=== PATIENT | female | born 1975 | race Caucasian/White ===

== ENCOUNTER 2018-04-05 16:00 | Outpatient (RCR) | payer BC ==
[2013-02-18 12:03] VITALS: BP 119/63
[~2018-04-05 16:00] MED LIST: GREEN COFFEE BEAN; NORCO 325 MG-51 TAB PO
== END 2018-05-09 | disposition home or self-care (01) ==
LOC: PT
DX: M54.41 Lumbago with sciatica, right side (principal)

== ENCOUNTER → 2021-08-21 | Outpatient (CLI) | payer BC ==
[2021-08-21 10:26] LABS: BASO # 0.03 K/mm3 (0.02-0.10); EOS # 0.07 K/mm3 (0.04-0.40); EOS % 1.4 % (1.0-5.0); HEMOGLOBIN 14.3 g/dL (12.5-16.0); LYMPH# 1.79 K/mm3 (1.50-4.00); MEAN CELL VOLUME 87 fl (78-100); MEAN CORPUSCULAR HEMOGLOBIN 28 pg (27-31); MEAN CORPUSCULAR HGB CONC 32 g/dL (33-37); MONO # 0.56 K/mm3 (0.20-0.80); NEU # 2.54 K/mm3 (1.40-6.50); PLATELET COUNT 203 K/mm3 (130-400); RED BLOOD COUNT 5.17 M/mm3 (4.10-5.30); RED CELL DISTRIBUTION WIDTH 18.2 % (11.5-14.5)
[2021-08-21 10:41] LABS: ALBUMIN 3.9 g/dL (3.5-5.0); POTASSIUM 4.1 mmol/L (3.5-5.1)
[2021-08-21 10:42] LABS: CALCIUM 8.8 mg/dL (8.3-10.5)
[2021-08-21 10:44] LABS: TOTAL PROTEIN 7.3 g/dL (6.4-8.3)
[2021-08-21 10:46] LABS: TOTAL BILIRUBIN 0.6 mg/dL (0.2-1.2)
[2021-08-21 10:47] LABS: URINE APPEARANCE CLEAR; URINE BILIRUBIN NEGATIVE (NEGATIVE); URINE BLOOD 50 ery/uL (NEGATIVE); URINE COLOR YELLOW; URINE GLUCOSE NEGATIVE (NEGATIVE); URINE KETONE NEGATIVE (NEGATIVE); URINE LEUKOCYTE ESTERASE NEGATIVE (NEGATIVE); URINE MUCUS PRESENT (NOT PRESENT); URINE NITRATE NEGATIVE (NEGATIVE); URINE PROTEIN(semi-quant) 1+ mg/dL (NEGATIVE); URINE UROBILINOGEN NORMAL (NORMAL); URINE WBC 0-1 /hpf (0-3)
== END ==
LOC: LAB 10:13
PROVIDERS: Surgery
DX: Z01.419 Encounter for gynecological examination (general) (routine) without abnormal findings (principal)

== ENCOUNTER 2021-10-29 03:47 | Emergency (ER) | payer BC ==
[~2021-10-29] VITALS: Ht 167.6 cm; Wt 68.2 kg
[2021-10-29 03:58] VITALS: BP 159/69
[2021-10-29 04:30] LABS: BASO # 0.03 K/mm3 (0.02-0.10); EOS # 0.06 K/mm3 (0.04-0.40); EOS % 0.6 % (1.0-5.0); HEMATOCRIT 42.5 % (37.0-47.0); HEMOGLOBIN 13.8 g/dL (12.5-16.0); LYMPH# 1.39 K/mm3 (1.50-4.00); MEAN CELL VOLUME 92 fl (78-100); MEAN CORPUSCULAR HEMOGLOBIN 30 pg (27-31); MEAN CORPUSCULAR HGB CONC 33 g/dL (33-37); MEAN PLATELET VOLUME 10.5 fl (7.4-10.4); MONO # 0.61 K/mm3 (0.20-0.80); NEU # 7.47 K/mm3 (1.40-6.50); PLATELET COUNT 178 K/mm3 (130-400); RED CELL DISTRIBUTION WIDTH 13.8 % (11.5-14.5); WHITE BLOOD COUNT 9.6 K/mm3 (4.8-10.8)
[2021-10-29 04:38] LABS: POTASSIUM 3.9 mmol/L (3.5-5.1)
[2021-10-29 04:39] LABS: CALCIUM 10.1 mg/dL (8.3-10.5)
[2021-10-29 04:41] LABS: TOTAL PROTEIN 7.4 g/dL (6.4-8.3)
[2021-10-29 04:42] LABS: TOTAL BILIRUBIN 0.4 mg/dL (0.2-1.2)
[2021-10-29 04:44] LABS: URINE APPEARANCE HAZY; URINE COLOR YELLOW; URINE GLUCOSE NEGATIVE (NEGATIVE); URINE KETONE NEGATIVE (NEGATIVE); URINE PROTEIN(semi-quant) TRACE (NEGATIVE)
[2021-10-29 04:45] LABS: URINE BILIRUBIN NEGATIVE (NEGATIVE); URINE BLOOD TRACE (NEGATIVE); URINE LEUKOCYTE ESTERASE NEGATIVE (NEGATIVE); URINE NITRATE NEGATIVE (NEGATIVE); URINE UROBILINOGEN NORMAL (NORMAL)
[2021-10-29] MEDS ORDERED: NORCO 325 MG-51 TA1 PO (08:31)
== END 2021-10-29 08:45 | disposition home or self-care (01) ==
LOC: ED 03:47
PROVIDERS: Internal Medicine
DX: R05.1 Acute cough (principal)
CPT/HCPCS: J1885; J2060; J2405; J3010; J7030

== ENCOUNTER → 2023-05-31 | Outpatient (CLI) | payer BC ==
[~2023-05-31] MED LIST changes: +NORCO 325 MG-51 TA1 PO
== END ==
LOC: MAMMO 16:00
DX: Z12.31 Encounter for screening mammogram for malignant neoplasm of breast (principal); N64.89 Other specified disorders of breast; N63.10 Unspecified lump in the right breast, unspecified quadrant

== ENCOUNTER → 2023-06-12 | Outpatient (CLI) | payer BC | LOC: MAMMO 06:56 | DX: N63.12 Unspecified lump in the right breast, upper inner quadrant (principal); N64.89 Other specified disorders of breast ==

== ENCOUNTER → 2024-07-02 | Outpatient (CLI) | payer BC | LOC: MAMMO 07:31 | DX: N63.10 Unspecified lump in the right breast, unspecified quadrant (principal) ==

== ENCOUNTER → 2024-09-30 | Day surgery (SDC) | payer BC ==
[~2024-09-30] MED LIST changes: +Lidocaine PF 2% (20 MG/ML) 5 ML VIAL ONE
== END ==
LOC: MSO 07:21
DX: Z12.11 Encounter for screening for malignant neoplasm of colon (principal); K63.5 Polyp of colon; Z87.891 Personal history of nicotine dependence
CPT/HCPCS: 00812; J2704; J7120